=== PATIENT | female | born 1985 | race African-American/Black ===

== ENCOUNTER → 2018-09-15 | Outpatient (CLI) | payer OTHER ==
[~2018-09-15] MED LIST: ISOVUE-370 76% 125ML VIAL (Q9967 PER ML) As Ordered ONE
--- NOTE | 2018-09-15 18:47 | REP ---
HYSTEROSALPINGOGRAM: 09/15/2018. Clinical history: Primary infertility. Findings: Fluoroscopy provided for Dr. Wu of the gynecology division who performed the endocervical cannulation. Retrograde filling of the endometrial cavity with Isovue 370 showed prompt filling of the endometrial cavity, both fallopian tubes and with prompt filling and spilling of both of those tubes with normal morphology. Fluoroscopy time 0.2 minutes. Electronically Signed by Rasta Quinn MD 09/16/2018 11:58 A
== END ==
LOC: M RADPRO 12:32
PROVIDERS: ATTEND Obstetrics & Gynecology
DX: N97.9 Female infertility, unspecified (principal)
CPT/HCPCS: 58340; 74740; Q9967

== ENCOUNTER 2018-11-28 15:13 | Emergency (ER) | payer OTHER ==
[~2018-11-28] VITALS: Ht 165.1 cm; Wt 80.9 kg
[2018-11-28 16:36] LABS: HEMOGLOBIN 12.6 g/dl (12.0-15.5); MEAN CORPUSCULAR HGB CONC 32.3 g/dl (32.0-36.5); MEAN CORPUSCULAR VOLUME 96.1 fl (80.0-96.0); PLATELET COUNT, AUTOMATED 325 10^3/uL (150-450); RED BLOOD COUNT 4.06 10^6/uL (4.00-5.40); WHITE BLOOD COUNT 10.8 10^3/uL (4.0-10.0)
[2018-11-28] MEDS ORDERED: LEXA1TAB2 PO (18:33)
--- NOTE | 2018-11-28 20:11 | REPVR ---
EXAM: US Pelvis Complete, Transabdominal EXAM DATE/TIME: 11/28/2018 7:03 PM CLINICAL HISTORY: 32 years old, female; Signs and symptoms; Menstruation abnormalities; Excessive menstruation; Additional info: Heavy bleeding/cramping TECHNIQUE: Imaging protocol: Real-time transabdominal pelvic ultrasound with image documentation. Complete exam. COMPARISON: XA Hysterosalpingogram 09/15/2018 12:37 PM FINDINGS: Uterus/cervix: The uterus measures 7.5 cm in its cephalocaudad dimension and 3.7 cm in its AP dimension transabdominal. The uterus measures 8.1 cm in its cephalocaudad dimension and 4.5 cm in its AP dimension transvaginal. There are several atrial fibroids with one on the right measuring 14 x 20 x 17 mm and another anteriorly measuring 20 x 11 x 14 mm and another posteriorly measuring 12 x 8 x 10 mm and 10 x 10 x 7 mm. The endometrium measures 12 mm. Right adnexa: The right ovary measures 3.5 x 1.3 x 1.9 cm and demonstrates blood flow. Left adnexa: The left ovary measures 3.6 x 1.2 x 2.9 cm and demonstrates blood flow. Free fluid: Trace fluid in the cul-de-sac which is physiologic. Bladder: Normal. IMPRESSION: 1. Multiple uterine myometrial fibroids measuring up to 14 x 20 x 17 mm. 2. Otherwise negative pelvic sonogram. Electronically signed by: Karlos Gallegos On 11/28/2018 20:11:39 PM
[2018-11-28 20:48] VITALS: BP 125/85
--- NOTE | 2018-11-29 18:17 | ED PDOC ---
Post-Departure Follow-Up [facility] faxed formal report of pelvic us for fu Gosia Klein MD November 29, 2018 18:17
== END 2018-11-28 20:50 | disposition home or self-care (01) ==
LOC: M ED 15:13
DX: D25.9 Leiomyoma of uterus, unspecified (principal); Z79.899 Other long term (current) drug therapy